=== PATIENT | male | born 1985 | race Caucasian/White ===

== ENCOUNTER 2024-07-23 10:54 | Emergency (ER) | payer OTHER ==
[~2024-07-23] VITALS: Ht 190.5 cm; Wt 90.7 kg
[2024-07-23 11:00] VITALS: TEMP 97.8
[2024-07-23] MEDS: FAMOTIDINE 20 MG TAB PO ONE (12:10)
[2024-07-23] MEDS: DONNATAL/LIDOCAINE/MAALOX 30 ML SUSP PO ONE (12:50)
[2024-07-23] MEDS: MAGNESIUM/ALUMINUM/SIMETHICONE 30 ML UDC PO ONE (12:50)
[2024-07-23] MEDS: BELLADONNA ALK/PHENOBARBITAL 5 ML UDC PO ONE (12:50)
[2024-07-23] MEDS: LIDOCAINE VISC 2% SOLN 15 ML UDC PO ONE (12:50)
[2024-07-23 12:52] VITALS: PULSE 74; RESP 16; O2SAT 97
== END 2024-07-23 13:24 | disposition home or self-care (01) ==
LOC: FSED 10:58
DX: K29.70 Gastritis, unspecified, without bleeding (principal); R10.13 Epigastric pain; U07.0 Vaping-related disorder
CPT/HCPCS: 93005; 99283